=== PATIENT | female | born 1980 | race American Indian/Alaskan Native ===

== ENCOUNTER 2018-02-19 13:44 | Outpatient (CLI) | payer OTHER | END 2018-02-19 14:51 | disposition home or self-care (01) | LOC: NST 13:44 | DX: Z34.83 Encounter for supervision of other normal pregnancy, third trimester (principal) ==

== ENCOUNTER 2018-04-07 14:30 | Inpatient (IN) | payer OTHER ==
[~2018-04-07] VITALS: Ht 170.2 cm; Wt 68.0 kg
[2018-04-29] MEDS ORDERED: PRENATAL TABLE1 EACH PO (09:21)
== END 2018-05-01 13:43 | DRG 775 ==
LOC: LDR 04-10 10:00 → OB/GYN 04-29 13:28 → LDR 05-01 10:00 → OB/GYN 05-01 13:43
PROC: 0KQM0ZZ Repair Perineum Muscle, Open Approach (ICD-10-PCS; principal; 2018-04-29)
PROC: 10E0XZZ Delivery of Products of Conception, External Approach (ICD-10-PCS; 2018-04-29)
PROC: 4A1HXCZ Monitoring of Products of Conception, Cardiac Rate, External Approach (ICD-10-PCS; 2018-04-29)
DX: O70.1 Second degree perineal laceration during delivery (principal); Z37.0 Single live birth; Z3A.41 41 weeks gestation of pregnancy

== ENCOUNTER 2020-07-27 10:23 | Outpatient (CLI) | payer OTHER ==
[~2020-07-27 10:23] MED LIST: PRENATAL TABLE1 EACH PO
== END 2020-07-27 10:34 | disposition home or self-care (01) ==
LOC: MAMO-SONO 10:23
PROVIDERS: ATTEND Internal Medicine
DX: N60.02 Solitary cyst of left breast (principal); R92.2 Inconclusive mammogram; Z12.39 Encounter for other screening for malignant neoplasm of breast

== ENCOUNTER → 2021-10-22 08:56 | Outpatient (CLI) | payer OTHER | END | disposition home or self-care (01) | LOC: LAB 08:56 | PROVIDERS: ATTEND Obstetrics & Gynecology Maternal & Fetal Medicine | DX: E03.8 Other specified hypothyroidism (principal); D63.8 Anemia in other chronic diseases classified elsewhere; N30.90 Cystitis, unspecified without hematuria; R73.9 Hyperglycemia, unspecified; K92.1 Melena; Z12.11 Encounter for screening for malignant neoplasm of colon; E55.9 Vitamin D deficiency, unspecified ==

== ENCOUNTER 2021-10-29 08:20 | Outpatient (CLI) | payer OTHER | END 2021-10-29 08:37 | disposition home or self-care (01) | LOC: MAMO-SONO 08:20 | PROVIDERS: ATTEND Obstetrics & Gynecology Maternal & Fetal Medicine | DX: Z12.31 Encounter for screening mammogram for malignant neoplasm of breast (principal); N63.0 Unspecified lump in unspecified breast; N64.4 Mastodynia; N60.11 Diffuse cystic mastopathy of right breast ==

== ENCOUNTER 2022-10-31 09:06 | Outpatient (CLI) | payer OTHER | END 2022-10-31 09:17 | disposition home or self-care (01) | LOC: MAMO-SONO 09:06 | PROVIDERS: ATTEND Obstetrics & Gynecology Maternal & Fetal Medicine | DX: Z12.31 Encounter for screening mammogram for malignant neoplasm of breast (principal); N63.0 Unspecified lump in unspecified breast; N64.4 Mastodynia; N60.11 Diffuse cystic mastopathy of right breast ==